=== PATIENT | male | born 2000 | race Caucasian/White ===

== ENCOUNTER 2018-01-12 07:02 | Emergency (ER) | payer BC ==
[2018-01-12] MEDS ORDERED: NS 0.9% 1000 ML* 1,000 ML IV ONE (07:23)
[2018-01-12] MEDS ORDERED: Acetaminophen TAB* 325 MG PO ONE ×2 (07:23→08:16)
--- NOTE | 2018-01-12 07:33 | UC ---
FLU HPI - HPI Summary HPI Summary: 17 yo M c/o flu-like illness including chills, fever, sore throat, fatigue. No cough or vomiting. +nausea. Symptoms present for <48 hr. Patient's mother is [employer]/ [employer] and prescribed him a single dose of unknown abx which he took yesterday without improvement. Also took Advil roughly 1 hr ago. No pmh Family hx non-contributory Medications reviewed. - History of Current Complaint Chief Complaint: UCGeneralIllness Stated Complaint: FEVER SORE THROAT CHILLS Time Seen by Provider: 01/12/18 07:21 Pain Intensity: 8 - Allergy/Home Medications Allergies/Adverse Reactions: Allergies Allergy/AdvReac Type Severity Reaction Status Date / Time cats Allergy Eyes Uncoded 01/12/18 07:22 Itchy/Swollen/Red/Watery Home Medications: Home Medications Ibuprofen [Advil] 400 mg PO ONCE PRN 01/12/18 [History Confirmed 01/12/18] PMH/Surg Hx/FS Hx/Imm Hx Previously Healthy: Yes - Surgical History Surgical History: Yes Surgery Procedure, Year, and Place: tonsilectomy. wisdom tooth - Social History Alcohol Use: Weekly Substance Use Type: Marijuana Substance Use Comment - Amount & Last Used: once a week Smoking Status (MU): Never Smoked Tobacco Review of Systems Constitutional: Fever, Chills, Fatigue Skin: Negative Respiratory: Negative Cardiovascular: Negative Gastrointestinal: Nausea All Other Systems Reviewed And Are Negative: Yes Physical Exam Triage Information Reviewed: Yes Appearance: Well-Appearing, No Pain Distress, Well-Nourished Vital Signs: Initial Vital Signs Temp 103.3 F 01/12/18 07:14 Pulse 106 01/12/18 07:14 Resp 18 01/12/18 07:14 BP 129/82 01/12/18 07:14 Pulse Ox 96 01/12/18 07:14 Vital Signs Reviewed: Yes Eyes: Positive: Conjunctiva Clear ENT: Positive: Hearing grossly normal, Pharyngeal erythema. Negative: Nasal congestion, Nasal drainage, Tonsillar swelling, Tonsillar exudate, Trismus, Muffled voice, Hoarse voice Neck exam: Normal Neck: Positive: Supple, Nontender, No Lymphadenopathy Respiratory: Positive: No respiratory distress, No accessory muscle use Cardiovascular Exam: Normal Abdomen Description: Positive: Nontender, Soft Skin Exam: Normal Re-Evaluation - Re-Evaluation First Eval Re-Evaluation Time: 08:45 Change: Improved Comment: remains febrile Flu Course/Dx - Course Course Of Treatment: given tylenol and IV fluids. Strep and flu swabs performed - Differential Dx/Diagnosis Differential Diagnosis/HQI/PQRI: Influenza, Upper Respiratory Infection, Other - viral pharyngitis, strep pharyngitis Provider Diagnoses: viral illness Discharge - Sign-Out/Discharge Documenting (check all that apply): Patient Departure All imaging exams completed and their final reports reviewed: No Studies - Discharge Plan Condition: Stable Disposition: HOME Patient Education Materials: Viral Syndrome (ED) Referrals: No Primary Care Phys,NOPCP [Primary Care Provider] - Additional Instructions: Take [id number] cold and flu medications for further relief of symptoms. You tested negative for Flu and Strep throat - Billing Disposition and Condition Condition: STABLE Disposition: Home
[2018-01-12] MEDS ORDERED: Ibuprofen TAB* 400 MG PO ONE (08:20)
== END 2018-01-12 09:00 | disposition home or self-care (01) ==
LOC: UCEAST 07:02
DX: B34.9 Viral infection, unspecified (principal)
CPT/HCPCS: 87651; 96360; 99202; A9270-GY; G0463